=== PATIENT | male | born 1930 | race Caucasian/White ===

== ENCOUNTER 2017-06-29 16:18 | Emergency (ER) | payer MEDICARE, OTHER ==
[2017-06-29] MEDS ORDERED: NS 0.9% 1000 ML* 1,000 ML IV ONE (17:51)
--- NOTE | 2017-06-29 19:11 | RAD ---
INDICATION: Altered mental status COMPARISON: Most recent comparison head CT is dated January 18, 2016. TECHNIQUE: Contiguous axial sections of the brain were obtained from the skull base to the vertex without contrast. FINDINGS: Stable findings to the prior CT include encephalomalacia involving the left hemisphere in the distribution of the left MCA with left frontal parietal and temporal craniectomy. There are involutional changes of the ventricles greater on the left than the right, unchanged in the previous CT examination. There is periventricular and subcortical white matter hypoattenuation most consistent with chronic microvascular disease. There is no acute intracranial hemorrhage, mass or mass effect. There is no acute abnormality of the calvarium status post left craniectomy. The mastoid air cells and visualized paranasal sinuses are well-aerated. IMPRESSION: Left hemisphere encephalomalacia and other chronic findings unchanged from the most recent CT examination.
--- NOTE | 2017-06-29 19:26 | RAD ---
CLINICAL HISTORY: No urine output. Relevant surgical history includes appendectomy, prostatectomy and cholecystectomy. COMPARISON: CT abdomen pelvis dated August 08, 2009 TECHNIQUE: Noncontrast CT examination of the abdomen and pelvis from the lung bases through the initial tuberosities. FINDINGS: Image quality is compromised by patient motion artifact as well as the patient's arms overlying the abdomen. VISUALIZED LUNG BASES: The visualized lung bases are grossly clear. There is no pleural effusion. Overlying the right of midline anterior chest wall there is a 1.9 cm low-density subcutaneous focus most consistent with a sebaceous cyst (image 8 series. ABDOMEN AND PELVIS: Evaluation of the solid organs and vasculature is limited without intravenous contrast. The liver, spleen and adrenal glands are grossly normal in appearance. The gallbladder is surgically absent. At the head of the pancreas there is a 2 cm low-density structure (image 41). The remainder the pancreas is grossly normal. There is no gross pancreatic duct dilatation. The kidneys are normal in appearance without focal mass, calcification or signs of hydronephrosis. The urinary bladder is not pathologically distended. Evaluation of the gastrointestinal tract is limited without oral contrast. The small and large bowel are not distended. There are scattered rectosigmoid diverticula. There is a large amount of stool in the rectal vault with the rectum measuring approximately 8 x 8.2 cm in greatest axial dimension. There is no gross retroperitoneal or mesenteric lymphadenopathy. The pelvic viscera is normal in appearance. There is coarse atherosclerotic calcification of the lower abdominal aorta extending into the iliofemoral arteries. Degenerative changes include multilevel loss of intervertebral disc height involving the lower thoracic and lumbar spine.There are no sinister bone lesions. IMPRESSION: 1. At the head of pancreas there is an ill-defined 2 cm low-density structure that either represents a dilated common pancreatic duct or pancreatic head mass. Further characterization can be made on a nonemergent basis with either ultrasound, contrast-enhanced MRI or for free CT of the abdomen. 2. A large amount of stool is noted in the rectal vault. Please correlate to signs and symptoms of fecal impaction. 3. No signs of hydronephrosis or pathologic distention of the urinary bladder. 4. Additional chronic, degenerative and iatrogenic findings described in the body the report.
[2017-06-29 19:29] LABS: Hematocrit 39 % (42-52); Hemoglobin 12.7 g/dl (14.0-18.0); Mean Corpuscular HGB Conc 33 g/dl (31-36); Mean Corpuscular Hemoglobin 34 pg (27-31); Mean Corpuscular Volume 104 fL (80-94); Mean Platelet Volume 9 um3 (7.4-10.4); Red Cell Distribution Width 14 % (10.5-15); White Blood Count 6.8 10^3/ul (3.5-10.8)
[2017-06-29 19:43] LABS: ALT < 3 U/L (7-52); AST 23 U/L (13-39); Alkaline Phosphatase 45 U/L (34-104); Anion Gap 8 mmol/L (2-11); BUN/Creatinine Ratio 19.5 (8-20); Blood Urea Nitrogen 43 mg/dL (6-24); C Reactive Protein 1.18 mg/L (< 5.00); CO2 Carbon Dioxide 27 mmol/L (22-32); Calcium 9.5 mg/dL (8.6-10.3); Chloride 109 mmol/L (101-111); Creatine Kinase 61 U/L (10-223); EGFR African American 36.2 (>60); EGFR Non-African American 28.2 (>60); Globulin 2.8 g/dL (2-4); Glucose 84 mg/dL (70-100); Lipase 51 U/L (11.0-82.0); Magnesium 2.2 mg/dL (1.9-2.7); Potassium 4.8 mmol/L (3.5-5.0); Sodium 144 mmol/L (133-145); Total Protein 6.8 g/dL (6.4-8.9)
[2017-06-29 19:44] LABS: Troponin I 0.03 ng/mL (<0.04)
[2017-06-29 19:47] LABS: B Type Natriuretic Peptide 181 pg/mL
[2017-06-29 20:14] LABS: Urine Bacteria Absent (Absent); Urine Bilirubin Negative (Negative); Urine Glucose Negative (Negative); Urine Nitrite Negative (Negative)
[2017-06-29 20:14] LABS: TSH (Thyroid Stimulating Horm) 5.03 mcIU/mL (0.34-5.60)
--- NOTE | 2017-06-29 22:09 | ED ---
Joseph Eduardo Benjamin, scribed for Garret Cristobal MD on 06/29/17 at 1750 . Altered Mental Status - HPI Summary HPI Summary: 87yo male comes into ED for AMS. Per daughter, pt has not been acting himself. 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 Since yesterday, pt had minimal urine output, refusing food and drinks, and much weaker than his baseline according to his homeland security program specialist and daughters observation. Pt also had loose stoolx1 last week and daughter reports pt coughing up lots of crud and nasal drainage. Pt measured fever at home. - History Of Current Complaint Chief Complaint: EDUrogenitalProblems Stated Complaint: NO URINE OUTPUT Time Seen by Provider: 06/29/17 17:32 Hx Obtained From: Family/Farm Laborer - daughter Hx From Patient Unobtainable Due To: Other - s/p CVA, aphasic Onset/Duration: Still Present Timing: Constant, Lasting Hours - since last night Severity Initially: Moderate Severity Currently: Moderate Character: Confusion, Responsiveness - less responsive Aggravating Factor(s): Nothing Alleviating Factor(s): Nothing Associated Signs And Symptoms: Positive: Weakness. Negative: Fever - Allergies/Home Medications Allergies/Adverse Reactions: Allergies Allergy/AdvReac Type Severity Reaction Status Date / Time Levofloxacin [From Levaquin] Allergy Severe Hallucinati Verified 06/29/17 16:26 ons Levetiracetam [From Keppra] Allergy Intermediate See Comment Verified 06/29/17 16:26 Penicillins Allergy Mild Rash Verified 06/29/17 16:26 PMH/Surg Hx/FS Hx/Imm Hx Endocrine/Hematology History: Reports: Hx Thyroid Disease Denies: Hx Anticoagulant Therapy, Hx Diabetes Cardiovascular History: Reports: Other Cardiovascular Problems/Disorders - POST STROKE 2006 Denies: Hx Congestive Heart Failure, Hx Deep Vein Thrombosis, Hx Hypertension , Hx Myocardial Infarction, Hx Pacemaker/ICD Respiratory History: Denies: Hx Asthma, Hx Chronic Obstructive Pulmonary Disease (COPD), Hx Lung Cancer, Hx Pneumonia, Hx Pulmonary Embolism GI History: Denies: Hx Gall Bladder Disease, Hx Gastrointestinal Bleed, Hx Ulcer, Hx Urosepsis History: Denies: Hx Kidney Stones, Hx Renal Disease Neurological History: Reports: Hx 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 PROSTATECOMY. THYROIDECTOMY 1987. GALLBLADDER REMOVED 1998. LEFT PARTIAL SKULL REMOVED 2006 D/T CVA - Immunization History Date of Tetanus Vaccine: Unknown Infectious Disease History: Denies: Traveled Outside the [place] in Last 30 Days - Family History Known Family History: Positive: Cardiac Disease Negative: Hypertension, Diabetes, Renal Disease - Social History Occupation: Disabled, Retired Lives: Alone Alcohol Use: None Substance Use Type: Reports: None, Prescribed Hx Tobacco Use: Yes Smoking Status (MU): Former Smoker Review of Systems Constitutional: Negative Negative: Fever Eyes: Negative ENT: Negative Cardiovascular: Negative Positive: Cough Positive: Vomiting - x1, Diarrhea - x1 Positive: frequency - less, other - minimal urine output Musculoskeletal: Negative Skin: Negative Positive: Weakness Psychological: Normal All Other Systems Reviewed And Are Negative: Yes Physical Exam Triage Information Reviewed: Yes Vital Signs On Initial Exam: Initial Vitals Pulse Resp BP Pulse Ox 54 16 191/88 96 06/29/17 16:26 06/29/17 16:26 06/29/17 16:26 06/29/17 16:26 Vital Signs Reviewed: Yes Appearance: Positive: No Pain Distress. Negative: Well-Appearing - Minimally responsive to voice. Keeps his eyes close. Skin: Positive: Warm, Skin Color Reflects Adequate Perfusion, Dry, Other Head/Face: Positive: Normal Head/Face Inspection Eyes: Positive: EOMI, QUETA, Conjunctiva Clear ENT: Positive: Hearing grossly normal, Other - dry mucous membrane Neck: Positive: Supple, Nontender Respiratory/Lung Sounds: Positive: Clear to Auscultation, Breath Sounds Present Cardiovascular: Positive: RRR Abdomen Description: Positive: Nontender, Other: - tympanitic abdomen Bowel Sounds: Positive: Present Musculoskeletal: Positive: Strength/ROM Intact Neurological: Positive: Focal Deficit @ - chronic Right sided weakness, Other Psychiatric: Positive: Affect/Mood Appropriate Diagnostics - Vital Signs Vital Signs Pulse Resp BP Pulse Ox 06/29/17 16:26 54 16 191/88 96 - Laboratory Lab Results: Lab Results 06/29/17 06/29/17 06/29/17 Range/Units 19:16 19:16 19:16 WBC 6.8 (3.5-10.8) 10^3/ul RBC 3.70 L (4.0-5.4) 10^6/ul Hgb 12.7 L (14.0-18.0) g/dl Hct 39 L (42-52) % MCV 104 H (80-94) fL MCH 34 H (27-31) pg MCHC 33 (31-36) g/dl RDW 14 (10.5-15) % Plt Count 207 (150-450) 10^3/ul MPV 9 (7.4-10.4) um3 Neut % (Auto) 63.7 (38-83) % Lymph % (Auto) 25.0 (25-47) % [place] % (Auto) 8.3 (1-9) % Eos % (Auto) 2.6 (0-6) % Baso % (Auto) 0.4 (0-2) % Absolute Neuts (auto) 4.3 (1.5-7.7) 10^3/ul Absolute Lymphs (auto) 1.7 (1.0-4.8) 10^3/ul Absolute Monos (auto) 0.6 (0-0.8) 10^3/ul Absolute Eos (auto) 0.2 (0-0.6) 10^3/ul Absolute Basos (auto) 0 (0-0.2) 10^3/ul Absolute Nucleated RBC 0 10^3/ul Nucleated RBC % 0 INR (Anticoag Therapy) 0.91 (0.89-1.11) APTT 31.2 (26.0-36.3) seconds Sodium 144 (133-145) mmol/L Potassium 4.8 (3.5-5.0) mmol/L Chloride 109 (101-111) mmol/L Carbon Dioxide 27 (22-32) mmol/L Anion Gap 8 (2-11) mmol/L BUN 43 H (6-24) mg/dL Creatinine 2.21 H (0.67-1.17) mg/dL Est GFR ( Amer) 36.2 (>60) Est GFR (Non-Af Amer) 28.2 (>60) BUN/Creatinine Ratio 19.5 (8-20) Glucose 84 (70-100) mg/dL Lactic Acid (0.5-2.0) mmol/L Calcium 9.5 (8.6-10.3) mg/dL Magnesium 2.2 (1.9-2.7) mg/dL Total Bilirubin 0.40 (0.2-1.0) mg/dL AST 23 (13-39) U/L ALT < 3 L (7-52) U/L Alkaline Phosphatase 45 (34-104) U/L Ammonia Total Creatine Kinase 61 (10-223) U/L Troponin I 0.03 (<0.04) ng/mL C-Reactive Protein 1.18 (< 5.00) mg/L B-Natriuretic Peptide ( - 100) pg/mL Total Protein 6.8 (6.4-8.9) g/dL Albumin 4.0 (3.2-5.2) g/dL Globulin 2.8 (2-4) g/dL Albumin/Globulin Ratio 1.4 (1-3) Lipase 51 (11.0-82.0) U/L TSH 5.03 (0.34-5.60) mcIU/mL Urine Color Urine Appearance Urine pH (5-9) Ur Specific [place] (1.010-1.030) Urine Protein (Negative) Urine Ketones (Negative) Urine Blood (Negative) Urine Nitrate (Negative) Urine Bilirubin (Negative) Urine Urobilinogen (Negative) Ur Leukocyte Esterase (Negative) Urine WBC (Auto) (Absent) Urine RBC (Auto) (Absent) Urine Bacteria (Absent) Urine Glucose (Negative) Valproic Acid 83.0 (50-100) mcg/mL 06/29/17 06/29/17 06/29/17 Range/Units 19:16 19:16 20:04 WBC (3.5-10.8) 10^3/ul RBC (4.0-5.4) 10^6/ul Hgb (14.0-18.0) g/dl Hct (42-52) % MCV (80-94) fL MCH (27-31) pg MCHC (31-36) g/dl RDW (10.5-15) % Plt Count (150-450) 10^3/ul MPV (7.4-10.4) um3 Neut % (Auto) (38-83) % Lymph % (Auto) (25-47) % [place] % (Auto) (1-9) % Eos % (Auto) (0-6) % Baso % (Auto) (0-2) % Absolute Neuts (auto) (1.5-7.7) 10^3/ul Absolute Lymphs (auto) (1.0-4.8) 10^3/ul Absolute Monos (auto) (0-0.8) 10^3/ul Absolute Eos (auto) (0-0.6) 10^3/ul Absolute Basos (auto) (0-0.2) 10^3/ul Absolute Nucleated RBC 10^3/ul Nucleated RBC % INR (Anticoag Therapy) (0.89-1.11) APTT (26.0-36.3) seconds Sodium (133-145) mmol/L Potassium (3.5-5.0) mmol/L Chloride (101-111) mmol/L Carbon Dioxide (22-32) mmol/L Anion Gap (2-11) mmol/L BUN (6-24) mg/dL Creatinine (0.67-1.17) mg/dL Est GFR ( Amer) (>60) Est GFR (Non-Af Amer) (>60) BUN/Creatinine Ratio (8-20) Glucose (70-100) mg/dL Lactic Acid 1.0 (0.5-2.0) mmol/L Calcium (8.6-10.3) mg/dL Magnesium (1.9-2.7) mg/dL Total Bilirubin (0.2-1.0) mg/dL AST (13-39) U/L ALT (7-52) U/L Alkaline Phosphatase (34-104) U/L Ammonia TNP Total Creatine Kinase (10-223) U/L Troponin I (<0.04) ng/mL C-Reactive Protein (< 5.00) mg/L B-Natriuretic Peptide 181 H ( - 100) pg/mL Total Protein (6.4-8.9) g/dL Albumin (3.2-5.2) g/dL Globulin (2-4) g/dL Albumin/Globulin Ratio (1-3) Lipase (11.0-82.0) U/L TSH (0.34-5.60) mcIU/mL Urine Color Yellow Urine Appearance Clear Urine pH 6.0 (5-9) Ur Specific [place] 1.015 (1.010-1.030) Urine Protein 1+(30 mg/dl) H (Negative) Urine Ketones Negative (Negative) Urine Blood 1+ H (Negative) Urine Nitrate Negative (Negative) Urine Bilirubin Negative (Negative) Urine Urobilinogen Negative (Negative) Ur Leukocyte Esterase Negative (Negative) Urine WBC (Auto) Trace(0-5/hpf) (Absent) Urine RBC (Auto) 2+(6-10/hpf) H (Absent) Urine Bacteria Absent (Absent) Urine Glucose Negative (Negative) Valproic Acid (50-100) mcg/mL 06/29/17 Range/Units 20:51 WBC (3.5-10.8) 10^3/ul RBC (4.0-5.4) 10^6/ul Hgb (14.0-18.0) g/dl Hct (42-52) % MCV (80-94) fL MCH (27-31) pg MCHC (31-36) g/dl RDW (10.5-15) % Plt Count (150-450) 10^3/ul MPV (7.4-10.4) um3 Neut % (Auto) (38-83) % Lymph % (Auto) (25-47) % [place] % (Auto) (1-9) % Eos % (Auto) (0-6) % Baso % (Auto) (0-2) % Absolute Neuts (auto) (1.5-7.7) 10^3/ul Absolute Lymphs (auto) (1.0-4.8) 10^3/ul Absolute Monos (auto) (0-0.8) 10^3/ul Absolute Eos (auto) (0-0.6) 10^3/ul Absolute Basos (auto) (0-0.2) 10^3/ul Absolute Nucleated RBC 10^3/ul Nucleated RBC % INR (Anticoag Therapy) (0.89-1.11) APTT (26.0-36.3) seconds Sodium (133-145) mmol/L Potassium (3.5-5.0) mmol/L Chloride (101-111) mmol/L Carbon Dioxide (22-32) mmol/L Anion Gap (2-11) mmol/L BUN (6-24) mg/dL Creatinine (0.67-1.17) mg/dL Est GFR ( Amer) (>60) Est GFR (Non-Af Amer) (>60) BUN/Creatinine Ratio (8-20) Glucose (70-100) mg/dL Lactic Acid (0.5-2.0) mmol/L Calcium (8.6-10.3) mg/dL Magnesium (1.9-2.7) mg/dL Total Bilirubin (0.2-1.0) mg/dL AST (13-39) U/L ALT (7-52) U/L Alkaline Phosphatase (34-104) U/L Ammonia 34 Total Creatine Kinase (10-223) U/L Troponin I (<0.04) ng/mL C-Reactive Protein (< 5.00) mg/L B-Natriuretic Peptide ( - 100) pg/mL Total Protein (6.4-8.9) g/dL Albumin (3.2-5.2) g/dL Globulin (2-4) g/dL Albumin/Globulin Ratio (1-3) Lipase (11.0-82.0) U/L TSH (0.34-5.60) mcIU/mL Urine Color Urine Appearance Urine pH (5-9) Ur Specific [place] (1.010-1.030) Urine Protein (Negative) Urine Ketones (Negative) Urine Blood (Negative) Urine Nitrate (Negative) Urine Bilirubin (Negative) Urine Urobilinogen (Negative) Ur Leukocyte Esterase (Negative) Urine WBC (Auto) (Absent) Urine RBC (Auto) (Absent) Urine Bacteria (Absent) Urine Glucose (Negative) Valproic Acid (50-100) mcg/mL Result Diagrams: 06/29/17 19:16 06/29/17 19:16 Lab Statement: Any lab studies that have been ordered have been reviewed, and results considered in the medical decision making process. - CT CT Abd/Pelv WO CT Interpretation: Positive (See Comments) - IMPRESSION: 1. At the head of pancreas there is an ill-defined 2 cm low-density structure that either represents a dilated common pancreatic duct or pancreatic head mass. Further characterization can be made on a nonemergent basis with either ultrasound, contrast-enhanced MRI or for free CT of the abdomen. 2. A large amount of stool is noted in the rectal vault. Please correlate to signs and symptoms of fecal impaction. 3. No signs of hydronephrosis or pathologic distention of the urinary bladder. 4. Additional chronic, degenerative and iatrogenic findings described in the body the report. CT Interpretation Completed By: Radiologist CT Brain WO CT Interpretation: No Acute Changes - IMPRESSION: Left hemisphere encephalomalacia and other chronic findings unchanged from the most recent CT examination. CT Interpretation Completed By: Radiologist Altered Mental Statu Course/Dx - Course Course Of Treatment: Reviewed pts medication and allergy lists. DISCUSSED RESULTS WITH PATIENT/DAUGHTER. PATIENT MUCH MORE ALERT AFTER NS 1 LITER. DEHYDRATION MAY BE THE PRIMARY CAUSE OF SX. PATIENT/DAUGHTER FEEL COMFORTABLE GOING HOME AND FOLLOWING UP WITH PMD. - Diagnoses Discharge Diagnoses: Dehydration, Weakness, Altered mental state Discharge - Discharge Plan Condition: Stable Disposition: HOME Patient Education Materials: Dehydration (ED), Weakness (ED), Altered Mental Status (ED) Referrals: Sim Gonzalez MD [Primary Care Provider] - Additional Instructions: FOLLOW UP WITH YOUR DOCTOR. RETURN TO THE EMERGENCY DEPARTMENT FOR ANY WORSENING OF YOUR CONDITION; ALTERED MENTAL STATE, FEVER, YOU FEEL ILL,WEAKNESS OR QUESTIONS OR CONCERNS. The documentation as recorded by the Joseph sevilla Benjamin accurately reflects the service I personally performed and the decisions made by me, Garret Cristobal MD.
[2017-06-29 22:24] VITALS: BP 177/68
== END 2017-06-29 22:38 | disposition home or self-care (01) ==
LOC: ED 16:18
DX: R41.82 Altered mental status, unspecified (principal); R53.1 Weakness; Z87.891 Personal history of nicotine dependence; R05 Cough; R11.10 Vomiting, unspecified; E86.0 Dehydration
CPT/HCPCS: 36415; 70450; 74176; 80053; 80164; 80175; 81003; 81015; 82140; 82550; 83605; 83690; 83735; 83880; 84443; 84484; 85025; 85610; 85730; 86140; 96360; 99283